=== PATIENT | male | born 1995 | race Caucasian/White ===

== ENCOUNTER 2017-08-16 20:08 | Emergency (ER) | payer BC ==
[~2017-08-16] VITALS: Ht 180.3 cm; Wt 67.1 kg
[2017-08-16] MEDS ORDERED: ACETAMINOPHEN-1 EAC1 PO (21:27)
[2017-08-16] MEDS ORDERED: AMOXICILLIN500 MG PO (21:27)
== END 2017-08-16 21:48 | disposition home or self-care (01) ==
LOC: ED 20:08
DX: J02.0 Streptococcal pharyngitis (principal); F17.200 Nicotine dependence, unspecified, uncomplicated
CPT/HCPCS: 87880; 99283

== ENCOUNTER 2017-10-02 22:15 | Emergency (ER) | payer BC ==
[~2017-10-02] VITALS: Ht 180.3 cm; Wt 67.1 kg
[~2017-10-02 22:15] MED LIST: ACETAMINOPHEN-1 EAC1 PO; AMOXICILLIN500 MG PO
[2017-10-02] MEDS ORDERED: ZOFRAN ODT4 MG PO (23:44)
== END 2017-10-02 23:59 | disposition home or self-care (01) ==
LOC: ED 22:15
DX: A08.4 Viral intestinal infection, unspecified (principal); Z79.2 Long term (current) use of antibiotics; F17.200 Nicotine dependence, unspecified, uncomplicated
CPT/HCPCS: 99283